=== PATIENT | male | born 1935 | race Caucasian/White ===

== ENCOUNTER → 2017-09-10 | Outpatient (CLI) | payer MEDICARE, OTHER ==
[~2017-09-10] MED LIST: ALE70 PO; ASPI-1471 PO; ASPI-715 PO; BLOO-1318 MC; BLOO-1337 MC; BLOO-884 MC; CALC-649 PO; CALC-734 PO; CALC600T72 PO; CAR3.125 PO; CIP500 PO; CLON0.5T66 PO; FAM20 PO; GLUC1KIT4 IJ; HYDR12.561 PO; IBU600 PO; INSU100I32 SQ; INSU100V26 SC; INSU100V30 SQ; ISOP1TOW MC; LANC-1149 MC; LANI SUBQ; LOR5 PO; LOR5/325 PO; LOSA100T67 PO; LOSA25TA50 PO; LOSA25TA51 PO; LOSA50TA72 PO; MULT-885 PO; OLME5TAB8 PO; SILD100T59 PO; SIM20 PO; SIMV-49 PO; SIMV5TAB56 PO; SULF-182 PO; VIT-7 PO; [UNRECOGNIZED DRUG - CODE] INJ
== END ==
LOC: LAB 13:32
PROVIDERS: ATTEND Internal Medicine
DX: E10.29 Type 1 diabetes mellitus with other diabetic kidney complication (principal); R80.9 Proteinuria, unspecified; E78.5 Hyperlipidemia, unspecified
CPT/HCPCS: 36415; 82040; 82247; 82310; 82374; 82435; 82465; 82565; 82947; 83036; 83718; 84075; 84132; 84155; 84295; 84450; 84460; 84478; 84520

== ENCOUNTER → 2017-12-17 | Outpatient (CLI) | payer MEDICARE, OTHER | LOC: LAB 14:14 | PROVIDERS: ATTEND Internal Medicine Cardiovascular Disease | DX: I25.10 Atherosclerotic heart disease of native coronary artery without angina pectoris (principal) | CPT/HCPCS: 36415; 82040; 82247; 82310; 82374; 82435; 82465; 82565; 82947; 83718; 84075; 84132; 84155; 84295; 84450; 84460; 84478; 84520 ==

== ENCOUNTER → 2018-02-05 | Outpatient (CLI) | payer MEDICARE, OTHER | LOC: LAB 14:54 | PROVIDERS: ATTEND Internal Medicine Cardiovascular Disease | DX: I50.22 Chronic systolic (congestive) heart failure (principal) | CPT/HCPCS: 36415; 82310; 82374; 82435; 82565; 82947; 84132; 84295; 84520 ==

== ENCOUNTER → 2018-02-05 | Outpatient (CLI) | payer MEDICARE, OTHER ==
[~2018-02-05] MED LIST changes: +IBUP800T37 PO
[2018-02-05 15:14] LABS: PLATELET COUNT, AUTOMATED 174 K/uL (150-450)
== END ==
LOC: LAB 14:56
PROVIDERS: ATTEND Internal Medicine
DX: Z12.5 Encounter for screening for malignant neoplasm of prostate (principal); E78.00 Pure hypercholesterolemia, unspecified; E10.9 Type 1 diabetes mellitus without complications; G72.41 Inclusion body myositis [IBM]
CPT/HCPCS: 36415; 85025; G0103; 82310; 82374; 82435; 82565; 82947; 84132; 84153; 84295; 84520

== ENCOUNTER → 2018-02-19 | Outpatient (CLI) | payer MEDICARE, OTHER ==
[~2018-02-19] MED LIST changes: +OXYC-865 PO
[2018-02-19 11:00] LABS: PLATELET COUNT, AUTOMATED 196 K/uL (150-450)
== END ==
LOC: LAB 10:36
PROVIDERS: ATTEND Nurse Practitioner Primary Care
DX: M54.5 Low back pain (principal); R19.7 Diarrhea, unspecified; E78.00 Pure hypercholesterolemia, unspecified; G72.41 Inclusion body myositis [IBM]; E10.9 Type 1 diabetes mellitus without complications; C67.9 Malignant neoplasm of bladder, unspecified
CPT/HCPCS: 36415; 81001; 82040; 82247; 82310; 82374; 82435; 82565; 82947; 84075; 84132; 84155; 84295; 84450; 84460; 84520; 85025

== ENCOUNTER → 2018-02-19 | Outpatient (CLI) | payer MEDICARE, OTHER | LOC: LAB 10:32 | PROVIDERS: ATTEND Nurse Practitioner Primary Care | DX: Z02.9 Encounter for administrative examinations, unspecified (principal) ==

== ENCOUNTER 2018-02-22 09:21 | Emergency (ER) | payer MEDICARE, OTHER ==
[~2018-02-22 09:21] MED LIST changes: -OXYC-865 PO
--- NOTE | 2018-02-22 10:04 | ER Report ---
History and Physical Time Seen By MD: 10:04 Hx. of Stated Complaint: Patient has left lateral mid back pain. Saw the doctor on Thursday who did a urine sample but didn't have anything so has been taking ibuprofen without relief. HPI/ROS 83-year-old male with type I insulin-dependent diabetes presents to the emergency department with 1 week of left lateral paraspinal lumbar pain. He states the pain started when he was walking home from [place] celebration last week. He went to see his primary care physician on Thursday. They did a UA which was normal and place him on NSAIDs for musculoskeletal back pain. He is worried that the pain is not improving, and also worried about continue to take NSAIDs. The pain has not migrated. It does not radiate. He denies any urinary symptoms. No abdominal pain. He states the pain is worse at night. He has had similar pain in the past, but states the pain self resolved after 1-2 days. No rashes. No other complaints. Remainder of the 14 system rev: Yes Allergies: Coded Allergies: No Known Drug Allergies (Verified , 02/22/18) Home Meds Active Scripts Oxycodone Hcl/Acetaminophen (PERCOCET 5-325 MG TABLET) 1 Each Tablet, 1 EACH PO QHS Y for PAIN for 5 Days, #5 TAB 0 Refills Prov:MATTEO BAILEY MD 02/22/18 Ibuprofen (IBUPROFEN) 800 Mg Tablet, 1 TAB PO Q8H Y for PAIN, #15 TAB 0 Refills Prov:ROBERTO CHAPA DNP, [employer]-BC 02/19/18 Blood Sugar Diagnostic (PRODIGY NO CODING) 1 Each Strip, 1 EACH MC 5XD, #100 STRIP 6 Refills Prov:LORENA SEVERINO MD 01/06/18 Clonazepam (KLONOPIN) 0.5 Mg Tablet, 1 TAB PO HS Y for INSOMNIA, #30 TAB Prov:LORENA SEVERINO MD 12/31/17 Sildenafil Citrate (VIAGRA) 100 Mg Tablet, 1 TAB PO QDAY Y for before sex., #10 TAB 6 Refills Prov:LORENA SEVERINO MD 10/15/17 Pen Needle, Diabetic (Bd Ultra-Fine Pen Needle) 32 Gauge X 1/4" Dis.needle, BOX INJ, #1 5 Refills Prov:LORENA SEVERINO MD 06/19/17 Simvastatin (SIMVASTATIN) 20 Mg Tablet, 20 MG PO HS, #90 TAB 3 Refills Prov:LORENA SEVERINO MD 06/19/17 Carvedilol (CARVEDILOL) 3.125 Mg Tab, 1 TAB PO BID, #180 TAB 3 Refills Prov:LORENA SEVERINO MD 06/19/17 Insulin Glulisine (APIDRA SOLOSTAR) 100 Unit/1 Ml Insuln.pen, 5 UNIT SQ TID, #1 VIAL 12 Refills Sliding scale Prov:LORENA SEVERINO MD 03/20/17 Blood Sugar Diagnostic (ONE TOUCH ULTRA TEST STRIPS) 1 Each Strip, 1 EACH MC TID , #100 STRIP 5 Refills use three times a day to test blood sugar Prov:LORENA SEVERINO MD 04/17/16 Lancets (ONE TOUCH LANCETS) 1 Each Each, 1 EACH MC TID, #100 5 Refills use three times a day to test blood sugar Prov:LORENA SEVERINO MD 04/17/16 Blood-Glucose Meter (ONE TOUCH ULTRA 2) 1 Each Kit, 1 EACH MC TID, #1 Use three times a day to test blood sugar Prov:LORENA SEVERINO MD 04/17/16 Isopropyl Alcohol (ALCOH-WIPE) 1 Each Towelette, 1 EACH MC QID, #200 Prov:CARLA MENDOZA MD 02/02/15 Glucagon,Human Recombinant (GLUCAGON EMERGENCY KIT) 1 Mg Kit, 1 MG IJ DAILY, #1 KIT 1 Refill Prov:CARLA MENDOZA MD 07/12/14 Reported Medications Losartan Potassium (LOSARTAN POTASSIUM) 100 Mg Tablet, 100 MG PO QDAY 05/27/17 Vit A,C & E/Lutein/Minerals (OCUVITE TABLET) 1 Each Tablet, 1 EACH PO QDAY 05/05/16 Insulin Glargine (LANTUS) 100 Unit/Ml Soln, 6 UNIT SUBQ BID, ML 11/15/15 Aspirin (ASPIR 81) 81 Mg Tablet.dr, 81 MG PO QDAY, TAB 07/04/14 Calcium Carbonate/Vitamin D3 (CALCIUM 500 + D TABLET) 1 Each Tablet, 1 EACH PO BID 07/04/14 Reviewed Nurses Notes: Yes Old Medical Records Reviewed: Yes Hx Smoking: Yes (LESS THAN 1 PPD FOR 4 YEARS) Smoking Status: Former Smoker Hx Substance Use Disorder: No Hx Alcohol Use: Yes Constitutional Vital Sign - Last 24 Hours 02/22/18 02/22/18 02/22/18 02/22/18 09:26 09:30 09:45 10:00 Temp 97.3 Pulse 69 65 47 Resp 16 13 B/P (MAP) 166/109 162/95 (117) 146/89 (108) 146/92 (110) Pulse Ox 95 95 96 92 O2 Delivery Room Air 02/22/18 02/22/18 02/22/18 02/22/18 10:15 10:30 10:45 11:00 Pulse 61 50 58 54 Resp 14 25 14 11 B/P (MAP) 145/111 (122) 150/87 (108) 156/94 (114) 161/89 (113) Pulse Ox 93 96 Intake and Output 02/22/18 02/22/18 02/23/18 14:59 22:59 06:59 Intake Total 500 ml Balance 500 ml Physical Exam General Appearance: The patient is alert, has no immediate need for airway protection and no current signs of toxicity. Eyes: Pupils equal and round no injection. Respiratory: Chest is non tender, lungs are clear to auscultation. Cardiac: regular rate and rhythm Gastrointestinal: Abdomen is soft and non tender, no masses, bowel sounds normal. Musculoskeletal: Mild TTP at the left lateral lumbar spine region Extremities have full range of motion and are non tender. Skin: No rashes or lesions. DIFFERENTIAL DIAGNOSIS: After history and physical exam differential diagnosis was considered for intra-abdominal pathology including AAA, kidney stone, infection, musculoskeletal pain Medical Decision Making Data Points Result Diagram: 02/22/18 1045 02/22/18 1045 Laboratory Hematology Test 02/22/18 10:45 02/22/18 10:51 Red Blood Count 4.94 M/uL (4.00-5.60) Mean Corpuscular Volume 90.9 fL (80.0-96.0) Mean Corpuscular Hemoglobin 30.8 pg (26.0-33.0) Mean Corpuscular Hemoglobin Concent 33.9 g/dL (32.0-36.0) Red Cell Distribution Width 14.9 % (11.5-14.5) Mean Platelet Volume 8.7 fL (7.2-11.1) Neutrophils (%) (Auto) 57.8 % (39.4-72.5) Lymphocytes (%) (Auto) 24.9 % (17.6-49.6) Monocytes (%) (Auto) 13.9 % (4.1-12.4) Eosinophils (%) (Auto) 2.5 % (0.4-6.7) Basophils (%) (Auto) 0.9 % (0.3-1.4) Nucleated RBC Relative Count (auto) 0.0 /100WBC Neutrophils # (Auto) 2.7 K/uL (2.0-7.4) Lymphocytes # (Auto) 1.2 K/uL (1.3-3.6) Monocytes # (Auto) 0.6 K/uL (0.3-1.0) Eosinophils # (Auto) 0.1 K/uL (0.0-0.5) Basophils # (Auto) 0.0 K/uL (0.0-0.1) Nucleated RBC Absolute Count (auto) 0.00 K/uL Sodium Level 139 mmol/L (137-145) Potassium Level 4.1 mmol/L (3.5-5.0) Chloride Level 105 mmol/L (98-107) Carbon Dioxide Level 27 mmol/L (22-30) Blood Urea Nitrogen 24 mg/dl (9-21) Creatinine 1.20 mg/dl (0.66-1.25) Glomerular Filtration Rate Calc 58.1 Random Glucose 139 mg/dl (75-110) Calcium Level 9.1 mg/dl (8.4-10.2) Total Bilirubin 0.7 mg/dl (0.2-1.3) Aspartate Amino Transf (AST/SGOT) 32 U/L (0-35) Alanine Aminotransferase (ALT/SGPT) 25 U/L (0-56) Alkaline Phosphatase 72 U/L (0-126) Total Protein 6.0 g/dl (6.3-8.2) Albumin 3.2 g/dl (3.5-5.0) Urine Color Yellow Urine Clarity Clear Urine pH 5.0 pH (4.8-9.5) Urine Specific Matthews 1.014 Urine Protein Negative mg/dL (NEGATIVE) Urine Glucose (UA) 50 mg/dL (NEGATIVE) Urine Ketones Negative mg/dL (NEGATIVE) Urine Blood Negative (NEGATIVE) Urine Nitrite Negative (NEGATIVE) Urine Bilirubin Negative (NEGATIVE) Urine Urobilinogen Negative mg/dL (0.2-1.9) Urine Leukocyte Esterase Negative (NEGATIVE) Urine RBC 2 /HPF (0-2/HPF) Urine WBC 1 /HPF (0-5/HPF) Urine Squamous Epithelial Cells Few /LPF (</=FEW) Urine Bacteria Negative /HPF (NONE-FEW) Urine Mucus Few /HPF (NONE-FEW) Chemistry Test 02/22/18 10:45 02/22/18 10:51 White Blood Count 4.6 k/uL (4.5-11.0) Red Blood Count 4.94 M/uL (4.00-5.60) Hemoglobin 15.2 g/dL (14.0-18.0) Hematocrit 44.9 % (42.0-52.0) Mean Corpuscular Volume 90.9 fL (80.0-96.0) Mean Corpuscular Hemoglobin 30.8 pg (26.0-33.0) Mean Corpuscular Hemoglobin Concent 33.9 g/dL (32.0-36.0) Red Cell Distribution Width 14.9 % (11.5-14.5) Platelet Count 173 K/uL (150-450) Mean Platelet Volume 8.7 fL (7.2-11.1) Neutrophils (%) (Auto) 57.8 % (39.4-72.5) Lymphocytes (%) (Auto) 24.9 % (17.6-49.6) Monocytes (%) (Auto) 13.9 % (4.1-12.4) Eosinophils (%) (Auto) 2.5 % (0.4-6.7) Basophils (%) (Auto) 0.9 % (0.3-1.4) Nucleated RBC Relative Count (auto) 0.0 /100WBC Neutrophils # (Auto) 2.7 K/uL (2.0-7.4) Lymphocytes # (Auto) 1.2 K/uL (1.3-3.6) Monocytes # (Auto) 0.6 K/uL (0.3-1.0) Eosinophils # (Auto) 0.1 K/uL (0.0-0.5) Basophils # (Auto) 0.0 K/uL (0.0-0.1) Nucleated RBC Absolute Count (auto) 0.00 K/uL Glomerular Filtration Rate Calc 58.1 Calcium Level 9.1 mg/dl (8.4-10.2) Total Bilirubin 0.7 mg/dl (0.2-1.3) Aspartate Amino Transf (AST/SGOT) 32 U/L (0-35) Alanine Aminotransferase (ALT/SGPT) 25 U/L (0-56) Alkaline Phosphatase 72 U/L (0-126) Total Protein 6.0 g/dl (6.3-8.2) Albumin 3.2 g/dl (3.5-5.0) Urine Color Yellow Urine Clarity Clear Urine pH 5.0 pH (4.8-9.5) Urine Specific Matthews 1.014 Urine Protein Negative mg/dL (NEGATIVE) Urine Glucose (UA) 50 mg/dL (NEGATIVE) Urine Ketones Negative mg/dL (NEGATIVE) Urine Blood Negative (NEGATIVE) Urine Nitrite Negative (NEGATIVE) Urine Bilirubin Negative (NEGATIVE) Urine Urobilinogen Negative mg/dL (0.2-1.9) Urine Leukocyte Esterase Negative (NEGATIVE) Urine RBC 2 /HPF (0-2/HPF) Urine WBC 1 /HPF (0-5/HPF) Urine Squamous Epithelial Cells Few /LPF (</=FEW) Urine Bacteria Negative /HPF (NONE-FEW) Urine Mucus Few /HPF (NONE-FEW) Urinalysis Test 02/22/18 10:51 Urine Color Yellow Urine Clarity Clear Urine pH 5.0 pH (4.8-9.5) Urine Specific Matthews 1.014 Urine Protein Negative mg/dL (NEGATIVE) Urine Glucose (UA) 50 mg/dL (NEGATIVE) Urine Ketones Negative mg/dL (NEGATIVE) Urine Blood Negative (NEGATIVE) Urine Nitrite Negative (NEGATIVE) Urine Bilirubin Negative (NEGATIVE) Urine Urobilinogen Negative mg/dL (0.2-1.9) Urine Leukocyte Esterase Negative (NEGATIVE) Urine RBC 2 /HPF (0-2/HPF) Urine WBC 1 /HPF (0-5/HPF) Urine Squamous Epithelial Cells Few /LPF (</=FEW) Urine Bacteria Negative /HPF (NONE-FEW) Urine Mucus Few /HPF (NONE-FEW) EKG/Imaging Imaging Results: CT scan of the abdomen/pelvis was obtained. The results of the study are normal. The study was read by the radiologist. I viewed the images myself on the PACS system. ED Course/Re-evaluation ED Course 83-year-old male presents with left low back pain for one week. Pain is worse with movement and better at rest. No trauma. No abdominal pain. No fever chills. Labs and UA are both within normal limits. A CT scan of the abdomen and pelvis to evaluate for a kidney stone was negative. I do not think this is intra -abdominal pathology such as a AAA. It is mostly consistent with musculoskeletal pain. I placed a lidocaine patch to the area. He will stop taking NSAIDs given his creatinine of 1.2 and instead take Tylenol 1 g by mouth 3 times a day, and was given a very short course of Percocet that he can take at night for pain relief. He will otherwise follow up with his primary care physician. Decision to Disposition Date: Feb 22, 2018 Decision to Disposition Time: 13:14 Depart Departure Latest Vital Signs Vital Signs Date Time Temp Pulse Resp B/P (MAP) Pulse Ox O2 Delivery O2 Flow Rate FiO2 02/22/18 11:00 54 11 161/89 (113) 96 02/22/18 09:26 97.3 Room Air Impression: Primary Impression: Muscle spasm of back Condition: Improved Disposition: HOME OR SELF-CARE Referrals: LORENA SEVERINO MD (PCP) New Scripts Oxycodone Hcl/Acetaminophen (PERCOCET 5-325 MG TABLET) 1 Each Tablet 1 EACH PO QHS Y for PAIN for 5 Days, #5 TAB 0 Refills Prov: MATTEO BAILEY MD 02/22/18 Patient Instructions: Musculoskeletal Pain (ED) Additional Instructions: Take the prescribed Percocet at night as needed for pain relief. Also for pain relief, take 1g ([id number] tabs) of Tylenol 3 times a day for 7 days MATTEO BAILEY MD Feb 22, 2018 10:04
[2018-02-22] MEDS ORDERED: NS(*) 0.9% 500 ML BAG 500 ML IV ONE (10:35)
[2018-02-22] MEDS ORDERED: ONDANSETRON 4 MG/2 ML VIAL IVP ONE (10:35)
[2018-02-22 10:57] LABS: PLATELET COUNT, AUTOMATED 173 K/uL (150-450)
[2018-02-22] MEDS ORDERED: NS(*) 0.9% 1000 ML BAG 1,000 ML IV ONE (11:15)
--- NOTE | 2018-02-22 11:48 | RADIOLOGY IMAGING REPORT ---
FACILITY: [facility] - [place] PATIENT NAME: José Luis Ruano : 1935 MR: [id number] V: [id number] EXAM DATE: ORDERING PHYSICIAN: MATTEO BAILEY TECHNOLOGIST: Location: [facility] [place] Patient: José Luis Ruano : 1935 Visit/Account:[id number] Date of Sevice: 02/22/2018 ABDOMEN/PELVIS W/O CONTRAST HISTORY: Left Flank pain for five days TECHNIQUE: Axial images acquired through the abdomen/pelvis. Coronal and sagittal reformatting also performed. No IV contrast administered. One of the following dose optimization techniques was utili zed in the performance of this exam: Automated exposure control; adjustment of the mA and/or kV accor ding to the patient's size; or use of an iterative reconstruction technique. Specific details can b e referenced in the facility's radiology CT exam operational policy. COMPARISON: None. FINDINGS: Visualized lung bases: Negative. Hepatobiliary: Negative. Spleen: Negative. Adrenals: Negative. Pancreas: Negative. Kidneys ureters and bladder: Right kidney is unremarkable in appearance for patient age. Minimal per inephric fat stranding likely represents chronic senescent change. There is a small extrarenal pelvi s. The right ureter is mildly distended measuring up to 1 cm diameter but there is no evidence of ob structing stone or definite evidence of obstructing mass. Left kidney is unremarkable for age. There is very minimal perinephric fat stranding which is a comm on senescent finding. It is symmetric with the contralateral side. The left ureter is normal and th ere is no evidence of obstructing stones. There are shallow urinary bladder diverticuli which raises possibility of bladder outlet obstruction. Genitalia: Prostate normal in size. This does not exclude central hypertrophic changes causing blad gio outlet obstruction. GI: There is minimal colonic diverticulosis through the descending colon. Colon otherwise unremarka ble. Appendix well-visualized and normal. Small bowel normal. Vessels/spaces/nodes: Negative. Bones/soft tissues: No evidence of compression fractures there is mild disc space narrowing at L1-2 and L4-5 and moderately advanced disc space narrowing at L5-S1 consistent with degenerative disc dise ase. Additional findings: There is a small periumbilical hernia best appreciated sagittal image 72. Ther e is a soft tissue mass in the subcutaneous fat directly adjacent to the hernia (axial images 61-63). It measures 3.1 x 1.6 cm diameter. Multiple subdermal calcifications are seen elsewhere through th e ventral abdominal wall and a smaller soft tissue nodule left lower quadrant ventral abdominal wall measures 1.1 x 0.8 cm. IMPRESSION: No evidence of ureteral nephrolithiasis. Etiology of patient's flank pain is not definitely identifi ed. Mild dilatation of the right ureter without evidence of obstructing lesion or associated hydronephros is.. 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 Small periumbilical hernia. Several nodules seen in the subcutaneous fat of the ventral abdominal wall. Multiple calcifications are also noted. 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 Correlate clinically. More aggressive lesion, particularly the larger lesion by the umbilica l wall hernia cannot BE excluded with certainty. If patient has not received umbilical wall injectio ns in the past consider follow-up ultrasound for assessment of any vascularity in this lesion. Probable bladder outlet obstruction with mild shallow bladder diverticula. Report Dictated By: Carson Duncan MD at 02/22/2018 11:30 AM Report E-Signed By: Carson Duncan MD at 02/22/2018 11:44 AM WSN:[email or web address]
[2018-02-22 13:00] VITALS: BP 133/103
[2018-02-22] MEDS ORDERED: LIDOCAINE 5% PATCH TP SCH (13:10)
[2018-02-22] MEDS ORDERED: OXYC-865 PO (13:16)
[2018-02-22] MEDS ORDERED: PATCH REMOVAL 1 EA TOP SCH (21:00)
[2018-02-24] MEDS ORDERED: OXYC-865 PO (13:11)
[2018-02-24] MEDS ORDERED: CLON0.5T66 PO (13:13)
== END 2018-02-22 13:29 | disposition home or self-care (01) ==
LOC: ER 09:37
DX: M62.830 Muscle spasm of back (principal)
CPT/HCPCS: 74176; 81001; 85025; 96374; 99284; A9270; J2405; J7030; 82040; 82247; 82310; 82374; 82435; 82565; 82947; 84075; 84132; 84155; 84295; 84450; 84460; 84520

== ENCOUNTER → 2018-02-24 | Outpatient (CLI) | payer MEDICARE, OTHER ==
[~2018-02-24] MED LIST changes: +OXYC-865 PO
--- NOTE | 2018-02-24 14:42 | RADIOLOGY IMAGING REPORT ---
FACILITY: [facility] PATIENT NAME: José Luis Ruano : 1935 MR: [id number] V: [id number] EXAM DATE: ORDERING PHYSICIAN: LORENA SEVERINO TECHNOLOGIST: Location: [facility] - [place] Patient: José Luis Ruano : 1935 Visit/Account:[id number] Date of Sevice: 02/24/2018 LUMBAR SPINE 2 OR 3 VIEW History: Low back pain. Comparison study: None. Findings: There is loss of the normal lordotic curvature of the lumbar spine. There is no fracture or spondylolisthesis. There are significant discogenic degenerative changes throughout the lumbar spine. Changes are most p rominent at L4-5 and L5-S1. The sacroiliac joints are unremarkable. IMPRESSION: 1. No fracture or spondylolisthesis. 2. Mild loss of the normal lordotic curvature of the lumbar spine. 3. Discogenic degenerative changes throughout the lumbar spine most prominent at L4-5 and L5-S1. Report Dictated By: Silvio Malik MD at 02/24/2018 2:38 PM Report E-Signed By: Silvio Malik MD at 02/24/2018 2:39 PM WSN:[id number]
== END ==
LOC: RAD 13:15
PROVIDERS: ATTEND Internal Medicine
DX: M51.36 Other intervertebral disc degeneration, lumbar region (principal)
CPT/HCPCS: 72100

== ENCOUNTER → 2018-04-08 | Outpatient (CLI) | payer MEDICARE, OTHER | LOC: LAB 07:30 | PROVIDERS: ATTEND Internal Medicine | DX: E10.29 Type 1 diabetes mellitus with other diabetic kidney complication (principal); R80.9 Proteinuria, unspecified; E78.5 Hyperlipidemia, unspecified; I10 Essential (primary) hypertension; R94.5 Abnormal results of liver function studies; E06.3 Autoimmune thyroiditis | CPT/HCPCS: 36415; 82040; 82043; 82247; 82310; 82374; 82435; 82565; 82947; 83036; 84075; 84132; 84155; 84295; 84443; 84450; 84460; 84520 ==

== ENCOUNTER → 2018-07-12 | Outpatient (CLI) | payer MEDICARE, OTHER ==
[~2018-07-12] MED LIST changes: +DOXY-179 PO; +INSU100I30 SQ; -LOSA100T67 PO; +LOSA100T69 PO; -LOSA25TA50 PO; +LOSA25TA52 PO; -LOSA50TA72 PO; +LOSA50TA74 PO; +MUPI15CR2 TP
== END ==
LOC: LAB 15:41
PROVIDERS: ATTEND Internal Medicine
DX: E10.29 Type 1 diabetes mellitus with other diabetic kidney complication (principal); R80.9 Proteinuria, unspecified; E06.3 Autoimmune thyroiditis
CPT/HCPCS: 36415; 83036; 84443

== ENCOUNTER → 2018-10-08 | Outpatient (CLI) | payer MEDICARE, OTHER ==
[~2018-10-08] MED LIST changes: -LOSA100T69 PO; +LOSA100T75 PO; -LOSA25TA52 PO; +LOSA25TA57 PO; -LOSA50TA74 PO; +LOSA50TA80 PO
== END ==
LOC: LAB 09:16
PROVIDERS: ATTEND Internal Medicine
DX: E10.29 Type 1 diabetes mellitus with other diabetic kidney complication (principal); R80.9 Proteinuria, unspecified
CPT/HCPCS: 36415; 82040; 82247; 82310; 82374; 82435; 82565; 82947; 83036; 84075; 84132; 84155; 84295; 84450; 84460; 84520

== ENCOUNTER → 2019-01-12 | Outpatient (CLI) | payer MEDICARE, OTHER | LOC: LAB 11:14 | PROVIDERS: ATTEND Internal Medicine Cardiovascular Disease | DX: E78.5 Hyperlipidemia, unspecified (principal) | CPT/HCPCS: 82040; 82247; 82310; 82374; 82435; 82465; 82565; 82947; 83718; 84075; 84132; 84155; 84295; 84450; 84460; 84478; 84520 ==

== ENCOUNTER → 2019-01-12 | Outpatient (CLI) | payer MEDICARE, OTHER | LOC: LAB 10:52 | PROVIDERS: ATTEND Internal Medicine | DX: E10.29 Type 1 diabetes mellitus with other diabetic kidney complication (principal); R80.9 Proteinuria, unspecified; E06.3 Autoimmune thyroiditis; I10 Essential (primary) hypertension; E78.5 Hyperlipidemia, unspecified | CPT/HCPCS: 36415; 83036; 84443 ==

== ENCOUNTER 2019-01-18 10:18 | Emergency (ER) | payer MEDICARE, OTHER ==
--- NOTE | 2019-01-18 11:05 | ER Report ---
History and Physical Time Seen By MD: 11:04 Hx. of Stated Complaint: ems called for low bg. 25 on scene. new onset of aflutter. pt ann marie to answer questions on arrival to er HPI/ROS CHIEF COMPLAINT: Low blood sugar HISTORY OF PRESENT ILLNESS: 83 year old male presents to ED, transferred here by EMS due to low blood sugars. reports she found him unresponsive this morning and called EMS. EMS took a sugar which was 26 on arrival. gave him an injection of glucagon. EMS gave him an amp of D50 and transferred him to the ED. Blood sugar was rechecked around 1030 and it was 82. Patient currently reports no dizziness, headache, nausea, or vomiting. Patient states he feels back to normal and would like to go home, however, he did agree to have labs checked. REVIEW OF SYSTEMS: Constitutional: No fevers, change in appetite. Does report increased fatigue over the past several months. Patient has hx of heart failure and has been developing worsening SOB and increased fatigue over the past several months. Respiratory: No cough. Reports shortness of breath. This has been occuring for quite sometime. Patient has hx of heart failure and has been developing worsening SOB and increased fatigue. 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 Cardiovascular: No chest pain, no palpitations. Gastrointestinal: No vomiting, no abdominal pain. Musculoskeletal: No back pain. Neuro: No dizziness, no headache, no tremor Allergies: Coded Allergies: No Known Drug Allergies (Verified , 01/18/19) Home Meds Active Scripts Sildenafil Citrate (VIAGRA) 100 Mg Tablet, 1 TAB PO QDAY PRN for before sex., #30 TAB Prov:LORENA SEVERINO MD 11/04/18 Clonazepam (KLONOPIN) 0.5 Mg Tablet, 0.5-1 TAB PO HS PRN for INSOMNIA, #30 TAB 4 Refills Prov:LORENA SEVERINO MD 07/29/18 Clonazepam (KLONOPIN) 0.5 Mg Tablet, 0.5-1 TAB PO HS PRN for INSOMNIA, #30 TAB 3 Refills Prov:LORENA SEVERINO MD 07/28/18 Carvedilol (CARVEDILOL) 3.125 Mg Tab, 1 TAB PO BID, #180 TAB 2 Refills Prov:LORENA SEVERINO MD 07/02/18 Mupirocin Michel 2% Cream (MUPIROCIN 2% CREAM) 15 Gm Cream..g., 0 TP BID for 7 Days, #15 GM Prov:LORENA SEVERINO MD 06/25/18 Doxycycline Hyclate (DOXYCYCLINE HYCLATE) 100 Mg Tablet, 100 MG PO QDAY, #7 TAB Prov:LORENA SEVERINO MD 06/25/18 Blood Sugar Diagnostic (PRODIGY NO CODING) 1 Each Strip, 1 EACH MC 5XD, #100 STRIP 11 Refills Prov:LORENA SEVERINO MD 06/25/18 Insulin Glulisine (APIDRA SOLOSTAR) 100 Unit/1 Ml Insuln.pen, 5 UNIT SQ TID, #5 PEN 12 Refills Sliding scale Max 20 units/24 hours Prov:LORENA SEVERINO MD 06/25/18 Insulin Glargine 100 Un/Ml Pen (LANTUS SOLOSTAR PEN) 100 Unit/1 Ml Insuln.pen, 6 UNIT SQ BID, #5 PEN 6 Refills Prov:LORENA SEVERINO MD 06/25/18 Pen Needle, Diabetic (Bd Ultra-Fine Pen Needle) 32 Gauge X 1/4" Dis.needle, BOX INJ 5XD, #4 5 Refills pt to test 5x/day Prov:LORENA SEVERINO MD 05/20/18 Ibuprofen (IBUPROFEN) 800 Mg Tablet, 1 TAB PO Q8H PRN for PAIN, #15 TAB 0 Refills Prov:ROBERTO CHAPA DNP, ENGINEER [employer] 02/19/18 Simvastatin (SIMVASTATIN) 20 Mg Tablet, 20 MG PO HS, #90 TAB 3 Refills Prov:LORENA SEVERINO MD 06/19/17 One Touch Ultra Test Strips (ONE TOUCH ULTRA TEST STRIPS) 1 Each Strip, 1 EACH MC TID, #100 STRIP 5 Refills use three times a day to test blood sugar Prov:LORENA SEVERINO MD 04/17/16 Lancets (ONE TOUCH LANCETS) 1 Each Each, 1 EACH MC TID, #100 5 Refills use three times a day to test blood sugar Prov:LORENA SEVERINO MD 04/17/16 Isopropyl Alcohol (ALCOH-WIPE) 1 Each Towelette, 1 EACH MC QID, #200 Prov:CARLA MENDOZA MD 02/02/15 Glucagon,Human Recombinant (GLUCAGON EMERGENCY KIT) 1 Mg Kit, 1 MG IJ DAILY, #1 KIT 1 Refill Prov:CARLA MENDOZA MD 07/12/14 Reported Medications Losartan Potassium (LOSARTAN POTASSIUM) 100 Mg Tablet, 100 MG PO QDAY 05/27/17 Vit A,C & E/Lutein/Minerals (OCUVITE TABLET) 1 Each Tablet, 1 EACH PO QDAY 05/05/16 Aspirin (ASPIR 81) 81 Mg Tablet.dr, 81 MG PO QDAY, TAB 07/04/14 Calcium Carbonate/Vitamin D3 (CALCIUM 500 + D TABLET) 1 Each Tablet, 1 EACH PO BID 07/04/14 Past Medical/Surgical History Past medical hx of systolic heart failure, HTN, hypercholesterolemia, bladder cancer, arthritis, left hand fracture in 2005, Type I diabetes. Past surgical hx of 3 hernia repairs, prostate removal in 1985, tonsillectomy, retinal hole fixed by Dr. Ruelas in 2009. Reviewed Nurses Notes: Yes Hx Smoking: Yes (LESS THAN 1 PPD FOR 4 YEARS) Smoking Status: Former Smoker Hx Substance Use Disorder: No Hx Alcohol Use: Yes Constitutional Vital Sign - Last 24 Hours 01/18/19 01/18/19 01/18/19 01/18/19 10:18 10:20 10:21 10:30 Temp 96.1 Pulse ??? 96 Resp 16 B/P (MAP) 143/108 143/108 (120) 139/96 (110) Pulse Ox 100 O2 Delivery Nasal Cannula 01/18/19 01/18/19 01/18/19 01/18/19 10:33 10:45 10:48 11:00 Pulse 52 46 Resp 20 12 B/P (MAP) 133/95 (108) 127/77 (94) Pulse Ox 89 99 01/18/19 01/18/19 01/18/19 01/18/19 11:03 11:05 11:15 11:18 Pulse 50 61 Resp 19 17 B/P (MAP) 139/94 (109) Pulse Ox 93 100 O2 Flow Rate 2.0 01/18/19 01/18/19 01/18/19 01/18/19 11:30 11:33 11:45 11:48 Pulse 68 99 Resp 15 14 B/P (MAP) 135/76 (95) 147/123 (131) Pulse Ox 92 01/18/19 01/18/19 01/18/19 01/18/19 12:00 12:05 12:15 12:30 Pulse 98 Resp 29 B/P (MAP) 117/80 (92) 92/83 (86) 102/81 (88) 01/18/19 01/18/19 01/18/19 01/18/19 12:35 12:45 12:50 13:00 Pulse 87 67 Resp 7 18 B/P (MAP) 133/92 (106) 131/87 (102) 01/18/19 01/18/19 01/18/19 01/18/19 13:05 13:15 13:20 13:30 Pulse 89 92 Resp 11 8 B/P (MAP) 141/83 (102) 139/105 (116) 01/18/19 01/18/19 13:35 13:45 Pulse 92 Resp 16 B/P (MAP) 134/118 (123) Physical Exam General Appearance: The patient is alert, has no immediate need for airway pr otection and no current signs of toxicity. Eyes: Pupils equal and round no injection. Respiratory: Chest is non tender, lungs are clear to auscultation. Cardiac: Heart with irregular rhythm, regular rate. S3 heart sound noted. No edema in lower extremities. Dorsalis pedis pulses equal, +2 bilaterally. Gastrointestinal: Abdomen is soft and non tender, no masses, bowel sounds normal. Musculoskeletal: Neck: Neck is supple and non tender. Neuro: Extraocular movements intact in all cranial mortensen. 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 Extremities have full range of motion and are non tender. Skin: No rashes or lesions. DIFFERENTIAL DIAGNOSIS: After history and physical exam differential diagnosis was considered for hypoglycemia, electrolyte abnormality, infection. Medical Decision Making Data Points Result Diagram: 01/18/19 1115 01/18/19 1115 Laboratory Hematology Test 01/18/19 00:00 01/18/19 11:05 01/18/19 11:15 01/18/19 12:50 Urine Color Yellow Urine Clarity Clear Urine pH 5.0 pH (4.8-9.5) Urine Specific [place] 1.016 Urine Protein 30 mg/dL (NEGATIVE) Urine Glucose (UA) Negative mg/dL (NEGATIVE) Urine Ketones Negative mg/dL (NEGATIVE) Urine Blood Negative (NEGATIVE) Urine Nitrite Negative (NEGATIVE) Urine Bilirubin Negative (NEGATIVE) Urine Urobilinogen Negative mg/dL (0.2-1.9) Urine Leukocyte Esterase Negative (NEGATIVE) Urine RBC 2 /HPF (0-2/HPF) Urine WBC 2 /HPF (0-5/HPF) Urine Squamous Epithelial Cells None /LPF (</=FEW) Urine Bacteria Negative /HPF (NONE-FEW) Urine Hyaline Casts Few /LPF (NONE-FEW) Urine Mucus None /HPF (NONE-FEW) Urine Opiates Screen Negative Urine Barbiturates Screen Negative Ur Tricyclic Antidepressants Screen Negative Urine Phencyclidine Screen Negative Urine Amphetamines Screen Negative Urine Benzodiazepines Screen Negative Urine Cocaine Screen Negative Urine Cannabinoids Screen Negative Blood Gas Puncture Site Right radial Blood Gas Patient Temperature 97.4 DEGREES Arterial Blood pH 7.39 (7.35-7.45) Arterial Blood Partial Pressure CO2 33 mmHg (32-37) Arterial Blood Partial Pressure O2 88 mmHg (60-80) Arterial Blood HCO3 21 mmol/L (20-26) Arterial Blood Oxygen Saturation 97 % (92-100) Arterial Blood Base Excess -5.0 mmol/L Jose Rafael Test Acceptable Oxygen Liters/Minute 29 Red Blood Count 5.25 M/uL (4.00-5.60) Mean Corpuscular Volume 94.2 fL (80.0-96.0) Mean Corpuscular Hemoglobin 31.0 pg (26.0-33.0) Mean Corpuscular Hemoglobin Concent 32.9 g/dL (32.0-36.0) Red Cell Distribution Width 15.4 % (11.5-14.5) Mean Platelet Volume 9.2 fL (7.2-11.1) Neutrophils (%) (Auto) 75.9 % (39.4-72.5) Lymphocytes (%) (Auto) 13.3 % (17.6-49.6) Monocytes (%) (Auto) 8.5 % (4.1-12.4) Eosinophils (%) (Auto) 1.6 % (0.4-6.7) Basophils (%) (Auto) 0.7 % (0.3-1.4) Nucleated RBC Relative Count (auto) 0.0 /100WBC Neutrophils # (Auto) 5.1 K/uL (2.0-7.4) Lymphocytes # (Auto) 0.9 K/uL (1.3-3.6) Monocytes # (Auto) 0.6 K/uL (0.3-1.0) Eosinophils # (Auto) 0.1 K/uL (0.0-0.5) Basophils # (Auto) 0.0 K/uL (0.0-0.1) Nucleated RBC Absolute Count (auto) 0.00 K/uL Sodium Level 140 mmol/L (137-145) Potassium Level 4.8 mmol/L (3.5-5.0) Chloride Level 102 mmol/L (98-107) Carbon Dioxide Level 26 mmol/L (22-30) Blood Urea Nitrogen 35 mg/dl (9-21) Creatinine 1.60 mg/dl (0.66-1.25) Glomerular Filtration Rate Calc 41.7 Random Glucose 159 mg/dl (75-110) Calcium Level 9.1 mg/dl (8.4-10.2) Total Bilirubin 1.1 mg/dl (0.2-1.3) Aspartate Amino Transf (AST/SGOT) 56 U/L (0-35) Alanine Aminotransferase (ALT/SGPT) 56 U/L (0-56) Alkaline Phosphatase 104 U/L (0-126) Ammonia < 9 UMOL/L (9-33) Total Protein 6.4 g/dl (6.3-8.2) Albumin 3.5 g/dl (3.5-5.0) Thyroid Stimulating Hormone (TSH) 6.53 uIU/ml (0.46-4.68) Serum Alcohol < 10 mg/dl Troponin I 0.030 ng/ml Test 01/18/19 13:59 Whole Blood Glucose 86 mg/DL (75-110) Chemistry Test 01/18/19 00:00 01/18/19 11:05 01/18/19 11:15 01/18/19 12:50 Urine Color Yellow Urine Clarity Clear Urine pH 5.0 pH (4.8-9.5) Urine Specific [place] 1.016 Urine Protein 30 mg/dL (NEGATIVE) Urine Glucose (UA) Negative mg/dL (NEGATIVE) Urine Ketones Negative mg/dL (NEGATIVE) Urine Blood Negative (NEGATIVE) Urine Nitrite Negative (NEGATIVE) Urine Bilirubin Negative (NEGATIVE) Urine Urobilinogen Negative mg/dL (0.2-1.9) Urine Leukocyte Esterase Negative (NEGATIVE) Urine RBC 2 /HPF (0-2/HPF) Urine WBC 2 /HPF (0-5/HPF) Urine Squamous Epithelial Cells None /LPF (</=FEW) Urine Bacteria Negative /HPF (NONE-FEW) Urine Hyaline Casts Few /LPF (NONE-FEW) Urine Mucus None /HPF (NONE-FEW) Urine Opiates Screen Negative Urine Barbiturates Screen Negative Ur Tricyclic Antidepressants Screen Negative Urine Phencyclidine Screen Negative Urine Amphetamines Screen Negative Urine Benzodiazepines Screen Negative Urine Cocaine Screen Negative Urine Cannabinoids Screen Negative Blood Gas Puncture Site Right radial Blood Gas Patient Temperature 97.4 DEGREES Arterial Blood pH 7.39 (7.35-7.45) Arterial Blood Partial Pressure CO2 33 mmHg (32-37) Arterial Blood Partial Pressure O2 88 mmHg (60-80) Arterial Blood HCO3 21 mmol/L (20-26) Arterial Blood Oxygen Saturation 97 % (92-100) Arterial Blood Base Excess -5.0 mmol/L Jose Rafael Test Acceptable Oxygen Liters/Minute 29 White Blood Count 6.7 k/uL (4.5-11.0) Red Blood Count 5.25 M/uL (4.00-5.60) Hemoglobin 16.3 g/dL (14.0-18.0) Hematocrit 49.5 % (42.0-52.0) Mean Corpuscular Volume 94.2 fL (80.0-96.0) Mean Corpuscular Hemoglobin 31.0 pg (26.0-33.0) Mean Corpuscular Hemoglobin Concent 32.9 g/dL (32.0-36.0) Red Cell Distribution Width 15.4 % (11.5-14.5) Platelet Count 176 K/uL (150-450) Mean Platelet Volume 9.2 fL (7.2-11.1) Neutrophils (%) (Auto) 75.9 % (39.4-72.5) Lymphocytes (%) (Auto) 13.3 % (17.6-49.6) Monocytes (%) (Auto) 8.5 % (4.1-12.4) Eosinophils (%) (Auto) 1.6 % (0.4-6.7) Basophils (%) (Auto) 0.7 % (0.3-1.4) Nucleated RBC Relative Count (auto) 0.0 /100WBC Neutrophils # (Auto) 5.1 K/uL (2.0-7.4) Lymphocytes # (Auto) 0.9 K/uL (1.3-3.6) Monocytes # (Auto) 0.6 K/uL (0.3-1.0) Eosinophils # (Auto) 0.1 K/uL (0.0-0.5) Basophils # (Auto) 0.0 K/uL (0.0-0.1) Nucleated RBC Absolute Count (auto) 0.00 K/uL Glomerular Filtration Rate Calc 41.7 Calcium Level 9.1 mg/dl (8.4-10.2) Total Bilirubin 1.1 mg/dl (0.2-1.3) Aspartate Amino Transf (AST/SGOT) 56 U/L (0-35) Alanine Aminotransferase (ALT/SGPT) 56 U/L (0-56) Alkaline Phosphatase 104 U/L (0-126) Ammonia < 9 UMOL/L (9-33) Total Protein 6.4 g/dl (6.3-8.2) Albumin 3.5 g/dl (3.5-5.0) Thyroid Stimulating Hormone (TSH) 6.53 uIU/ml (0.46-4.68) Serum Alcohol < 10 mg/dl Troponin I 0.030 ng/ml Test 01/18/19 13:59 Whole Blood Glucose 86 mg/DL (75-110) Toxicology Test 01/18/19 00:00 01/18/19 11:15 Urine Opiates Screen Negative Urine Barbiturates Screen Negative Ur Tricyclic Antidepressants Screen Negative Urine Phencyclidine Screen Negative Urine Amphetamines Screen Negative Urine Benzodiazepines Screen Negative Urine Cocaine Screen Negative Urine Cannabinoids Screen Negative Serum Alcohol < 10 mg/dl Urinalysis Test 01/18/19 00:00 Urine Color Yellow Urine Clarity Clear Urine pH 5.0 pH (4.8-9.5) Urine Specific [place] 1.016 Urine Protein 30 mg/dL (NEGATIVE) Urine Glucose (UA) Negative mg/dL (NEGATIVE) Urine Ketones Negative mg/dL (NEGATIVE) Urine Blood Negative (NEGATIVE) Urine Nitrite Negative (NEGATIVE) Urine Bilirubin Negative (NEGATIVE) Urine Urobilinogen Negative mg/dL (0.2-1.9) Urine Leukocyte Esterase Negative (NEGATIVE) Urine RBC 2 /HPF (0-2/HPF) Urine WBC 2 /HPF (0-5/HPF) Urine Squamous Epithelial Cells None /LPF (</=FEW) Urine Bacteria Negative /HPF (NONE-FEW) Urine Hyaline Casts Few /LPF (NONE-FEW) Urine Mucus None /HPF (NONE-FEW) EKG/Imaging Monitor Interpretation: Atrial Flutter ED Course/Re-evaluation ED Course Upon arrival to the ED via EMS, patient was admitted to an exam room, hx and physical obtained, differentials considered. Patient transferred here by EMS due to low blood sugars. reported she found him unresponsive this morning and called EMS. EMS took a sugar which was 26 on arrival. gave him an injection of glucagon. EMS gave him an amp of D50 and transferred him to the ED. Blood sugar was rechecked around 1030 and it was 82. Patient currently reports no dizziness, headache, nausea, or vomiting. Patient states he feels back to normal and would like to go home, however, he did agree to have labs checked. Does report increased fatigue and SOB over the past several months. Patient has hx of heart failure and has been developing worsening SOB and increased fatigue over the past several months. Lungs clear to auscultation, heart rate normal, irregular rhythm with S3 heart sound. PERRL, extraocular movements intact, no edema in lower extremities, pedal pulses equal bilaterally. IV started. CBC, CMP, troponin, albumin, blood gasses, ammonia, urine drug screen, alcohol, TSH, EKG, UA collected. EKG shows atrial flutter with premature aberrantly conducted complexes with ventricular rate of 86 bpm. Most labs unremarkable: BUN 35 and creatinine 1.6 are elevated but this is patient's normal. Glucose up to 159. pCO2 33 and pO2 88, drug screen negative, ammonia <9. However, troponin is el evated at 0.038. Will redraw troponin at 1230. Second troponin came down to 0.030. Informed patient of the negative result. Since blood sugar came up and patient reports he feels good and would like to go home, will send patient home with self-care. Patient agrees to plan of care. Decision to Disposition Date: Jan 18, 2019 Decision to Disposition Time: 13:49 Depart Departure Latest Vital Signs Vital Signs Date Time Temp Pulse Resp B/P (MAP) Pulse Ox O2 Delivery O2 Flow Rate FiO2 01/18/19 13:45 134/118 (123) 01/18/19 13:35 92 16 01/18/19 11:33 92 01/18/19 11:05 2.0 01/18/19 10:20 96.1 Nasal Cannula Impression: Primary Impression: Type I diabetes mellitus Condition: Improved Disposition: HOME OR SELF-CARE Referrals: LORENA SEVERINO MD (PCP) Patient Instructions: Hypoglycemia in a Person with Diabetes (ED) Additional Instructions: Please drink plenty of water and get plenty of rest. Keep your cardiology appointment for tomorrow. Follow-up with your business practices supervisor regarding your low blood sugar. Check blood sugars frequently, especially at night, to monitor low blood sugar. Return to the emergency room with any chest pain, difficulty breathing, dizziness, really low or high blood sugars, or any other concerns. Problem Qualifiers Primary Impression: Type I diabetes mellitus Diabetes mellitus complication status: with hypoglycemia Diabetes mellitus complication detail: without coma Qualified Codes: E10.649 - Type 1 diabetes mellitus with hypoglycemia without coma WHIT HANSON Jan 18, 2019 11:04
[2019-01-18 11:24] LABS: PLATELET COUNT, AUTOMATED 176 K/uL (150-450)
--- NOTE | 2019-01-18 11:25 | EKG ---
FACILITY: [facility] [place] PATIENT NAME: CARINA MILLER : [id number] MR: [id number] V: [id number] EXAM DATE: ORDERING PHYSICIAN: WHIT HANSON TECHNOLOGIST: Test Reason : Blood Pressure : / mmHG Vent. Rate : 086 BPM Atrial Rate : 277 BPM P-R Int : 000 ms QRS Dur : 112 ms QT Int : 418 ms P-R-T Axes : 083 017 082 degrees QTc Int : 500 ms Atrial flutter with variable AV block with premature ventricular or aberrantly conducted complexes Nonspecific ST and T wave abnormality Prolonged QT Abnormal ECG No previous ECGs available Confirmed by LAURIE LONGO ([id number]) on 01/18/2019 2:29:44 PM Referred By: Confirmed By:LAURIE LONGO
[2019-01-18 13:45] VITALS: BP 134/118
== END 2019-01-18 13:57 | disposition home or self-care (01) ==
LOC: ER 11:08
DX: E10.649 Type 1 diabetes mellitus with hypoglycemia without coma (principal); I48.92 Unspecified atrial flutter; I49.3 Ventricular premature depolarization
CPT/HCPCS: 36415; 36416; 36600; 80305; 81001; 82140; 82803; 82948; 84443; 84484; 85025; 87088; 93005; 99283; G0480; 80320; 82040; 82247; 82310; 82374; 82435; 82565; 82947; 84075; 84132; 84155; 84295; 84450; 84460; 84520

== ENCOUNTER → 2019-01-18 | Outpatient (CLI) | payer MEDICARE, OTHER | LOC: AMB 09:48 | PROVIDERS: ATTEND Nurse Practitioner | DX: R40.4 Transient alteration of awareness (principal); E10.649 Type 1 diabetes mellitus with hypoglycemia without coma | CPT/HCPCS: A0425; A0427 ==

== ENCOUNTER → 2019-03-08 | Outpatient (CLI) | payer MEDICARE, OTHER ==
[~2019-03-08] MED LIST changes: +APIX5TAB PO; +FURO-45 PO
== END ==
LOC: LAB 11:47
PROVIDERS: ATTEND Internal Medicine
DX: Z12.5 Encounter for screening for malignant neoplasm of prostate (principal); I48.91 Unspecified atrial fibrillation; I50.9 Heart failure, unspecified; I25.10 Atherosclerotic heart disease of native coronary artery without angina pectoris; E78.00 Pure hypercholesterolemia, unspecified; E78.5 Hyperlipidemia, unspecified
CPT/HCPCS: 36415; 84443; G0103; 82040; 82247; 82310; 82374; 82435; 82565; 82947; 84075; 84132; 84153; 84155; 84295; 84450; 84460; 84520

== ENCOUNTER → 2019-04-05 | Outpatient (CLI) | payer MEDICARE, OTHER | LOC: LAB 10:30 | PROVIDERS: ATTEND Internal Medicine Clinical Cardiac Electrophysiology | DX: I48.3 Typical atrial flutter (principal) | CPT/HCPCS: 36415; 82310; 82374; 82435; 82565; 82947; 84132; 84295; 84520; 85027 ==